=== PATIENT | male | born 1980 | race African-American/Black ===

== ENCOUNTER 2017-03-03 19:09 | Emergency (ER) | payer OTHER ==
[2017-03-03 19:14] VITALS: BP 110/66; PULSE 93; TEMP 98.7; BMI 21.1
--- NOTE | 2017-03-03 19:20 | PDOC ---
[id number] No Limitations - History of Present Illness Initial Comments: 03/03/17 19:34 The patient is a 36 year old male, with no significant past medical history, who presents to the emergency room with RLQ abdominal pain starting this morning that was initially constant, but has now become intermittent. The patient states that the pain is severe and exacerbated upon movement. He notes that he has not eaten anything all day, but drank water and coffee this morning. His last bowel movement was this morning and was constipated, which is not unusual for him. The patient notes that he has hemorrhoids. Denies fever, chills, nausea, vomiting. Denies urinary changes, hematuria, dysuria. Allergies: antibiotic (does not know the name) <Nidhi Anderson - Last Filed: 03/03/17 19:59> <Ángel Menendez - Last Filed: 03/10/17 13:26> - General Chief Complaint: Pain Stated Complaint: ABD PAIN Time Seen by Provider: 03/03/17 19:14 Past History <Nidhi Anderson - Last Filed: 03/03/17 19:59> - Past Medical History Other medical history: DENIES - Psycho/Social/Smoking Cessation Hx Anxiety: No Suicidal Ideation: No Smoking History: Never smoked Hx Alcohol Use: No Drug/Substance Use Hx: No <Ángel Menendez - Last Filed: 03/10/17 13:26> - Past Medical History Allergies/Adverse Reactions: Allergies Allergy/AdvReac Type Severity Reaction Status Date / Time ANTIBIOTIC, DOESNT KNOW NAME Allergy Hives Uncoded 03/03/17 19:11 Home Medications: Ambulatory Orders NK [No Known Home Medication] 03/03/17 Review of Systems - Review of Systems Able to Perform ROS?: Yes Comments:: 03/03/17 19:34 CONSTITUTIONAL: Absent: fever, chills, diaphoresis, generalized weakness, malaise, loss of appetite HEENT: Absent: rhinorrhea, nasal congestion, throat pain, throat swelling, difficulty swallowing, mouth swelling, ear pain, eye pain, visual Changes CARDIOVASCULAR: Absent: chest pain, syncope, palpitations, irregular heart rate, lightheadedness , peripheral edema RESPIRATORY: Absent: cough, shortness of breath, dyspnea with exertion, orthopnea, wheezing, stridor, hemoptysis GASTROINTESTINAL: Present: RLQ abdominal pain, constipation Absent: abdominal distension, nausea, vomiting, diarrhea, melena, hematochezia GENITOURINARY: Absent: dysuria, frequency, urgency, hesitancy, hematuria, flank pain, genital pain MUSCULOSKELETAL: Absent: myalgia, arthralgia, joint swelling SKIN: Absent: rash, itching, pallor HEMATOLOGIC/IMMUNOLOGIC: Absent: easy bleeding, easy bruising, lymphadenopathy, frequent infections ENDOCRINE: Absent: unexplained weight gain, unexplained weight loss, heat intolerance, cold intolerance NEUROLOGIC: Absent: headache, focal weakness or paresthesias, dizziness, unsteady gait, seizure, mental status changes, bladder or bowel incontinence PSYCHIATRIC: Absent: anxiety, depression, suicidal or homicidal ideation, hallucinations. 03/03/17 20:00 <Nidhi Anderson - Last Filed: 03/03/17 19:59> *Physical Exam - Vital Signs Last Vital Signs Temp Pulse Resp BP Pulse Ox 98.7 F 93 H 18 110/66 100 03/03/17 19:10 03/03/17 19:10 03/03/17 19:10 03/03/17 19:10 03/03/17 19:10 - Physical Exam Comments: 03/03/17 19:59 GENERAL: Well developed, well nourished. Awake and alert. In no acute distress. HEENT: Normocephalic, atraumatic. PERRLA, EOMI. No conjunctival pallor. Sclera are non- icteric. Moist mucous membranes. Oropharynx is clear. NECK: Supple. Full ROM. No JVD. Carotid pulses 2+ and symmetric, without bruits. No thyromegaly. No lymphadenopathy. CARDIOVASCULAR: Regular rate and rhythm. No murmurs, rubs, or gallops. Distal pulses are 2+ and symmetric. PULMONARY: No evidence of respiratory distress. Lungs clear to auscultation bilaterally. No wheezing, rales or rhonchi. ABDOMINAL: + Diffuse tenderness to the RLQ with voluntary guarding and rebound. Soft. Non- distended. No organomegaly. Normoactive bowel sounds. MUSCULOSKELETAL Normal range of motion at all joints. No bony deformities or tenderness. No CVA tenderness. EXTREMITIES: No cyanosis. No clubbing. No edema. No calf tenderness. SKIN: Warm and dry. Normal capillary refill. No rashes. No jaundice. NEUROLOGICAL: Alert, awake, appropriate. Cranial nerves 2-12 intact. No deficits to light touch and temperature in face, upper extremities and lower extremities. No motor deficits in the in face, upper extremities and lower extremities. Normoreflexic in the upper and lower extremities. Normal speech. Toes are downgoing bilaterally. Gait is normal without ataxia. PSYCHIATRIC: Cooperative. Good eye contact. Appropriate mood and affect. <Nidhi Anderson - Last Filed: 03/03/17 19:59> - Vital Signs Last Vital Signs Temp Pulse Resp BP Pulse Ox 98.7 F 93 H 18 110/66 100 03/03/17 19:10 03/03/17 19:10 03/03/17 19:10 03/03/17 19:10 03/03/17 19:10 <Ángel Menendez - Last Filed: 03/10/17 13:26> ED Treatment Course - LABORATORY CBC & Chemistry Diagram: 03/03/17 19:32 03/03/17 19:30 <Nidhi Anderson - Last Filed: 03/03/17 19:59> - LABORATORY CBC & Chemistry Diagram: 03/03/17 19:32 03/03/17 19:30 <Ángel Menendez - Last Filed: 03/10/17 13:26> Medical Decision Making - Medical Decision Making Patient with right lower quadrant pain, possible appendicitis, labs and CT pending. Signed out to Dr. Berry 7 PM pending further results and medical evaluation and treatment. <Ángel Menendez - Last Filed: 03/10/17 13:26> *DC/Admit/Observation/Transfer - Attestations Scribe Attestion: 03/03/17 19:35 Documentation prepared by KURT Jane, acting as medical nurse for Ángel Menendez MD. <Nidhi Anderson - Last Filed: 03/03/17 19:59> <Ángel Menendez - Last Filed: 03/10/17 13:26> Diagnosis at time of Disposition: Abdominal pain Qualifiers: Abdominal location: right lower quadrant Qualified Code(s): R10.31 - Right lower quadrant pain - Discharge Dispostion Disposition: HOME Condition at time of disposition: Stable - Referrals Referrals: Jenaro Shaikh MD [Staff Physician] - - Patient Instructions Additional Instructions: Tylenol or Motrin as needed for pain. Call Dr. Shaikh on Monday morning and get an appointment to follow-up. Return to the emergency department immediately with ANY new, persistent or worsening symptoms. Continue any medications as previously prescribed by your physician. You should follow up with your primary doctor as soon as possible regarding today's emergency department visit. . Please make sure your doctor reviews the results of your emergency evaluation. Thank you for coming to the Emergency Department today for your care. It was a pleasure to see you today. Please note that your evaluation is INCOMPLETE until you follow-up with your doctor.
[2017-03-03 19:53] LABS: URINE APPEARANCE Clear; URINE BILIRUBIN Negative (NEGATIVE); URINE GLUCOSE (UA) Negative (NEGATIVE); URINE KETONE Negative (NEGATIVE); URINE LEUK ESTERASE Negative (NEGATIVE); URINE NITRITE Negative (NEGATIVE); URINE PROTEIN Negative (NEGATIVE); URINE UROBILINOGEN 0.2 E.U/dl (0.2-1.0)
[2017-03-03 19:55] LABS: BASOPHIL 0.7 % (0-2.0); EOSINOPHIL 1.6 % (0-4.5); MCH 27.6 pg (25.7-33.7); MCHC 34.2 g/dl (32.0-35.9); MEAN PLT VOLUME 7.8 fl (7.5-11.1); NEUTROPHILS 66.7 % (42.8-82.8); PLATELET COUNT 294 K/MM3 (134-434); RDW 13.2 % (11.9-15.9)
[2017-03-03] MEDS ORDERED: KETOROLAC TROMETHAMINE 30 MG/1 ML VIAL ONE (19:55)
[2017-03-03 19:56] LABS: URINE BLOOD 2+ (NEGATIVE); URINE COLOR YELLOW
[2017-03-03] MEDS ORDERED: KETOROLAC TROMETHAMINE 30 MG/1 ML VIAL IVPUSH ONE (19:58)
[2017-03-03 20:08] LABS: ALBUMIN 4.4 g/dl (3.5-5.0); ALK PHOS 56 U/L (32-92); ANION GAP 6 (8-16); CALCIUM 9.4 mg/dl (8.4-10.2); CO2 27 mmol/L (22-28); CREATININE 0.7 mg/dl (0.6-1.3); GLUCOSE,RANDOM 106 mg/dl (74-106); SGOT/AST 19 U/L (10-42); SGPT/ALT 13 U/L (10-40); TOT PROT 7.2 g/dl (6.4-8.3)
[2017-03-03 20:41] LABS: URINE RBC 0-2 /hpf (0-3)
[2017-03-03 20:42] LABS: URINE BACTERIA FEW /hpf (NEGATIVE)
--- NOTE | 2017-03-03 23:32 | PDOC ---
*Physical Exam - Vital Signs Last Vital Signs Temp Pulse Resp BP Pulse Ox 98.7 F 93 H 18 110/66 100 03/03/17 19:10 03/03/17 19:10 03/03/17 19:10 03/03/17 19:10 03/03/17 19:10 ED Treatment Course - LABORATORY CBC & Chemistry Diagram: 03/03/17 19:32 03/03/17 19:30 - ADDITIONAL ORDERS Additional order review: Laboratory Results 03/03/17 03/03/17 19:40 19:30 Sodium 135 L Potassium 4.4 Chloride 102 Carbon Dioxide 27 Anion Gap 6 L BUN 14 Creatinine 0.7 Creat Clearance w eGFR > 60 Random Glucose 106 Calcium 9.4 Total Bilirubin 1.0 AST 19 ALT 13 Alkaline Phosphatase 56 Total Protein 7.2 Albumin 4.4 Lipase 35 Urine Color Yellow Urine Appearance Clear Urine pH 5.0 Ur Specific [place] 1.020 Urine Protein Negative Urine Glucose (UA) Negative Urine Ketones Negative Urine Blood 2+ H Urine Nitrite Negative Urine Bilirubin Negative Urine Urobilinogen 0.2 e.u/dl Ur Leukocyte Esterase Negative Urine RBC 0-2 Urine WBC 2-4 Urine Bacteria Few 03/03/17 19:32 RBC 5.73 H MCV 81.0 MCHC 34.2 RDW 13.2 MPV 7.8 Neutrophils % 66.7 Lymphocytes % 21.8 Monocytes % 9.2 Eosinophils % 1.6 Basophils % 0.7 - Medications Given in the ED: ED Medications Discontinued Medications Generic Name Dose Route Start Last Admin Trade Name Freq PRN Reason Stop Dose Admin Ketorolac Tromethamine 30 mg 03/03/17 19:58 03/03/17 19:58 Toradol Injection - IVPUSH 03/03/17 19:59 30 mg NOW ONE Administration Progress Note - Progress Note Progress Note: Care of this patient was transferred to [place] from Dr. Miller at 8 PM. Patient is a 36-year-old male comes in complaining of abdominal pain. Patient's pain is epigastric and right lower quadrant. Patient has a workup pending including labs and a CAT scan 23:30 Patient's workup was negative for any acute pathology. He had a normal white count there was no left shift and his chemistries were normal. Patient had a CAT scan to rule out acute appendicitis or abdominal pathology. CAT scan did show some inflammatory changes of the distal small bowel otherwise it was no lymphadenopathy, obstruction or evidence of appendicitis. Patient was given a copy of his CAT scan was told was very important he follow- up with his doctor as a unusual cause of the inflammatory changes could be And infiltrative process. Patient was referred to Dr. mohan for follow-up. *DC/Admit/Observation/Transfer Diagnosis at time of Disposition: Abdominal pain Qualifiers: Abdominal location: right lower quadrant Qualified Code(s): R10.31 - Right lower quadrant pain - Discharge Dispostion Disposition: HOME Condition at time of disposition: Stable Admit: No - Referrals Referrals: Jenaro Shaikh MD [Staff Physician] - - Patient Instructions Additional Instructions: Tylenol or Motrin as needed for pain. Call Dr. Shaikh on Monday morning and get an appointment to follow-up. Return to the emergency department immediately with ANY new, persistent or worsening symptoms. Continue any medications as previously prescribed by your physician. You should follow up with your primary doctor as soon as possible regarding today's emergency department visit. . Please make sure your doctor reviews the results of your emergency evaluation. Thank you for coming to the Emergency Department today for your care. It was a pleasure to see you today. Please note that your evaluation is INCOMPLETE until you follow-up with your doctor.
== END 2017-03-03 23:37 | disposition home or self-care (01) ==
LOC: FER 19:09
PROC: 3E0233Z Introduction of Anti-inflammatory into Muscle, Percutaneous Approach (ICD-10-PCS; principal; 2017-03-03)
DX: R10.31 Right lower quadrant pain (principal)
CPT/HCPCS: 36415; 74177-TC; 80053; 81003; 81015; 83690; 85025; 96372; 99283-25